=== PATIENT | male | born 1975 | race Caucasian/White ===

== ENCOUNTER 2017-05-13 18:24 | Emergency (ER) | payer OTHER ==
[2017-05-13] MEDS ORDERED: Acetaminophen 500 MG TAB ONE (18:50)
== END 2017-05-13 19:40 | disposition home or self-care (01) ==
LOC: NAV ERS 18:24
DX: J30.1 Allergic rhinitis due to pollen (principal); R09.81 Nasal congestion; K21.9 Gastro-esophageal reflux disease without esophagitis; F17.210 Nicotine dependence, cigarettes, uncomplicated; Z79.899 Other long term (current) drug therapy
CPT/HCPCS: 99284